=== PATIENT | male | born 1995 | race Two or more races ===

== ENCOUNTER 2022-05-29 16:11 | Emergency (ER) | payer OTHER ==
[~2022-05-29] VITALS: Ht 170.2 cm; Wt 82.0 kg
[2022-05-29 18:15] LABS: Basophils # (auto) 0.1 10 ^3/uL (0-0.2); Basophils % (auto) 1.9 % (0.0-2.0); Eosinophils # (auto) 0.3 10 ^3/uL (0-0.8); Eosinophils % (auto) 6.6 % (0.0-7.0); Lymphocytes # (auto) 1.5 10 ^3/uL (0.4-5.4); Mean Corpuscular Hemoglobin 28.8 pg (28.0-32.0); Mean Corpuscular Hgb Conc. 32.4 g/dL (32.0-36.0); Mean Corpuscular Volume 88.8 fL (80.0-100.0); Monocytes # (auto) 0.5 10 ^3/uL (0-1.3); Neutrophils # (auto) 2.8 10 ^3/uL (1.6-8.6); Neutrophils % (auto) 52.5 % (37.0-80.0); Red Blood Cells 4.51 10^6/uL (4.5-5.90); Red Cell Distribution Width 14.6 % (11.8-14.3); White Blood Cell 5.3 10^3/uL (4.4-10.8)
[2022-05-29 18:26] LABS: Alcohol, Urine < 3.0 mg/dL (0-10); Amphetamine Screen, Urine NEGATIVE (NEGATIVE); Barbiturate Scree,Urine NEGATIVE (NEGATIVE); Benzodiazephine Screen, Urine NEGATIVE (NEGATIVE); Cannabinoid Screen, Urine POSITIVE (NEGATIVE); Cocaine Screen, Urine NEGATIVE (NEGATIVE); Opiate Scree,Urine NEGATIVE (NEGATIVE); Phencyclidine Screen, Urine POSITIVE (NEGATIVE)
[2022-05-29 18:34] LABS: Albumin 4.1 g/dL (3.4-5.0)
[2022-05-29 18:36] LABS: Salicylate < 1.7 mg/dL (2.8-20.0)
[2022-05-29 18:38] LABS: BUN/Creatinine Ratio 21.4; Bilirubin, Total 1.2 mg/dL (0.2-1.0); Total Protein 7.4 g/dL (6.4-8.2)
[2022-05-29 18:43] LABS: Acetaminophen < 2.0 ug/mL (10-30)
[2022-05-30 07:37] VITALS: BP 109/70
== END 2022-05-30 15:37 | disposition left against medical advice (07) ==
LOC: ER 16:11
DX: R45.851 Suicidal ideations (principal); F20.9 Schizophrenia, unspecified
CPT/HCPCS: 36415; 80053; 80307; 80329; 85025